=== PATIENT | female | born 1995 | race African-American/Black ===

== ENCOUNTER 2019-02-25 07:59 | Emergency (ER) | payer MEDICAID ==
[~2019-02-25] VITALS: Ht 162.6 cm; Wt 57.0 kg
[2019-02-25] MEDS ORDERED: DIAZEPAM 5 MG TABLET PO ONE (09:00)
[2019-02-25] MEDS ORDERED: KETOROLAC 60MG/2ML VIAL IM ONE (09:00)
[2019-02-25 10:21] VITALS: BP 119/74
== END 2019-02-25 10:21 | disposition home or self-care (01) ==
LOC: ER 08:14
DX: M62.838 Other muscle spasm (principal)
CPT/HCPCS: 81025; 96372; 99283; J1885

== ENCOUNTER 2019-11-14 01:00 | Emergency (ER) | payer MEDICAID ==
[~2019-11-14] VITALS: Ht 162.6 cm; Wt 56.0 kg
[2019-11-14] MEDS ORDERED: IBUPROFEN 600MG TABLET PO STA (01:36)
[2019-11-14] MEDS ORDERED: ALBUTEROL (0.083%) 2.5MG/3ML NEB HHN STA (01:36)
[2019-11-14] MEDS ORDERED: IPRATROPIUM BROMIDE (0.02%) 0.5MG/2.5ML NEB HHN STA (01:36)
[2019-11-14] MEDS ORDERED: PREDNISONE 20MG TABLET PO STA (01:36)
[2019-11-14 03:09] LABS: BASOPHILS % 0.5 % (0.0-2.0); EOSINOPHILS % 1.7 % (0.0-5.0); HEMATOCRIT. 43.2 % (36.0-48.0); HEMOGLOBIN. 15.2 g/dL (12.0-16.0); LYMPHOCYTES % 36.1 % (20.0-50.0); MEAN CORPUSCULAR HEMOGLOBIN 32.8 pg (28.0-32.0); MEAN CORPUSCULAR VOLUME 93.3 fL (81.0-99.0); MEAN PLATELET VOLUME 8.7 fl (7.4-10.4); MONOCYTES % 14.1 % (2.0-8.0); NEUTROPHILS % 47.6 % (40.0-76.0); PLATELET 194 x1000/uL (130-400); RED BLOOD CELL COUNT 4.63 mill/uL (4.2-5.4); RED CELL DISTRIBUTION WIDTH 12.6 % (11.6-14.6)
[2019-11-14 03:13] LABS: PROTHROMBIN TIME 10.7 sec (9.6-11.0)
[2019-11-14 03:16] LABS: CHLORIDE 103 mEq/L (98-107)
[2019-11-14 03:49] LABS: CLARITY URINE CLEAR (CLEAR); COLOR URINE YELLOW (YELLOW); KETONES URINE NEGATIVE (NEGATIVE); LEUKOCYTE ESTERASE URINE NEGATIVE (NEGATIVE); NITRITE URINE NEGATIVE (NEGATIVE); OCCULT BLOOD URINE 1+ (NEGATIVE); PH URINE 5.5 (4.5-8.0); PROTEIN URINE TRACE (NEGATIVE); SPECIFIC GRAVITY URINE 1.018 (1.005-1.030); UROBILINOGEN URINE 0.2 E.U./dL (0.2-1.0)
[2019-11-14 05:45] VITALS: BP 111/67
== END 2019-11-14 06:28 | disposition home or self-care (01) ==
LOC: ER 01:00
DX: J45.901 Unspecified asthma with (acute) exacerbation (principal); M54.31 Sciatica, right side; F12.10 Cannabis abuse, uncomplicated
CPT/HCPCS: 36415; 80053; 81003; 81025; 83690; 85025; 85610; 94640; 99283; J7512; J7610; Z7610

== ENCOUNTER 2025-02-06 21:47 | Emergency (ER) | payer SELFPAY ==
[~2025-02-06] VITALS: Ht 162.6 cm; Wt 62.0 kg
[2025-02-06 21:53] VITALS: O2SAT 100
[2025-02-06 22:33] LABS: BASOPHILS % 0.8 % (0.0-2.0); HEMOGLOBIN. 12.5 g/dL (12.0-16.0); MEAN CORPUSCULAR HEMOGLOBIN 32.1 pg (28.0-32.0); MEAN CORPUSCULAR HGB CONC 33.8 g/dL (31.0-37.0); MEAN PLATELET VOLUME 8.1 fl (7.4-10.4); MONOCYTES % 6.8 % (2.0-8.0); NEUTROPHILS % 44.4 % (40.0-76.0); PLATELET 264 x1000/uL (130-400); RED BLOOD CELL COUNT 3.89 mill/uL (4.2-5.4); RED CELL DISTRIBUTION WIDTH 12.4 % (11.6-14.6); WHITE BLOOD COUNT 4.5 x1000/uL (4.5-11.0)
[2025-02-06 22:41] LABS: CHLORIDE 110 mEq/L (98-107); POTASSIUM 3.9 mEq/L (3.5-5.1); SODIUM 141 mEq/L (136-145)
[2025-02-06 22:42] LABS: CARBON DIOXIDE 25 mEq/L (21-32)
[2025-02-06 22:43] LABS: CALCIUM 9.2 mg/dL (8.7-10.4)
[2025-02-06 22:47] LABS: CREATININE 0.9 mg/dL (0.6-1.0); GLUCOSE 73 mg/dL (70-105); UREA NITROGEN BLOOD 11 mg/dL (9-23)
[2025-02-06 22:53] LABS: TROPONIN I HIGH SENSITIVITY < 4 ng/L (3.0-34)
[2025-02-06 23:55] LABS: HCG SCREEN NEGATIVE
[2025-02-07] MEDS: DEXAMETHASONE 10 MG/ML VIAL IM ONE (01:00)
[2025-02-07] MEDS ORDERED: ALBU18HF2 IH (01:07)
[2025-02-07] MEDS ORDERED: LIDO-53 TP (01:37)
[2025-02-07] MEDS ORDERED: ACET-2708 MT (01:37)
[2025-02-07 01:38] VITALS: BP 94/61; PULSE 68; RESP 14; TEMP 36.7; O2SAT 99
== END 2025-02-07 01:41 | disposition home or self-care (01) ==
LOC: ER 21:47
DX: J45.901 Unspecified asthma with (acute) exacerbation (principal); F12.90 Cannabis use, unspecified, uncomplicated; Z79.899 Other long term (current) drug therapy
CPT/HCPCS: 99284; 71045; 80048; 84703; 85025; 84484; 36415; 96372; J1100